=== PATIENT | male | born 1950 | race Caucasian/White ===

== ENCOUNTER → 2016-07-25 | Outpatient (CLI) | payer BC ==
[~2016-07-25] MED LIST: ASPCH81X PO; CANA1TAB3 PO; GLIM4TAB2 PO; LIRA18IN SC; METF1TAB53 PO; OLME1TAB11 PO
[2016-07-25 09:48] LABS: BASO % 0.5 %; BASO ABS # 0.03 K/uL (0-0.2); COMPLETE YES; EOS % 5.7 %; HEMATOCRIT 39.4 % (42-52); IG% 0.5 %; LYMPH % 35.9 %; MEAN CELL VOLUME 98.5 fL (80-100); MEAN CORPUSCULAR HEMOGLOBIN 35.8 pg (25-34); MEAN CORPUSCULAR HGB CONC 36.3 g/dl (32-36); MEAN PLATELET VOLUME 10.6 fL (7.4-10.4); MONO % 11.3 %; NEUT % 46.1 %; PLATELET COUNT 196 K/uL (130-400); WHITE BLOOD COUNT 5.57 K/uL (4.8-10.8)
[2016-07-25 10:26] LABS: ESTIMATED AVERAGE GLUCOSE 146 mg/dl; HA1C FLAG Normal (Normal)
[2016-07-25 10:30] LABS: CALCIUM 9.8 mg/dl (8.5-10.1)
[2016-07-25 10:34] LABS: ALT/SGPT 32 U/L (12-78); BLOOD UREA NITROGEN 21 mg/dl (7-18); BUN/CREATININE RATIO 26.7 (10-20); CARBON DIOXIDE 27 mmol/L (21-32); CHLORIDE 105 mmol/L (98-107); CHOLESTEROL 241 mg/dl (0-200); CREATININE 0.79 mg/dl (0.60-1.40); GLUCOSE 130 mg/dl (70-99); SODIUM 141 mmol/L (136-145); TRIGLYCERIDES 173 mg/dl (0-150); URIC ACID 4.1 mg/dl (2.6-7.2); VERY LOW DENSITY LIPOPROT CALC 35 mg/dl
[2016-07-25 10:41] LABS: ALB/GLOB RATIO 1.4 (0.9-2); ALKALINE PHOSPHATASE 44 U/L (45-117); AST/SGOT 12 U/L (15-37); CHOLESTEROL/HDL RATIO 3.7; HDL CHOLESTEROL 65 mg/dl; LDL CHOLESTEROL CALCULATED 141 mg/dl; PHOSPHORUS 3.8 mg/dl (2.5-4.9)
[2016-07-28 14:13] LABS: C-REACTIVE PROT HIGHSEN 1.5 MG/L
--- NOTE | 2016-07-31 12:44 | CODING QUERY MEDICAL NECESSITY ---
SUPPORTING DIAGNOSIS NEEDED A supporting diagnosis is required for the test/procedure performed on this patient in order for us to be reimbursed by the patient's insurance. Please provide a supporting diagnosis for the following test/procedure listed below next to the test name along with your signature. *If there is no additional diagnosis for this patient that would support the following test/procedure please document that below next to the test/procedure. Test(s)/Procedure(s) that require a supporting diagnosis: DOS 07/25 * Vitamin D DIAGNOSIS: * Vitamin B12 DIAGNOSIS: * CRP DIAGNOSIS: Provider Signature: Date: Thank you [facility] Once completed, please kindly fax back to [phone] For questions please call [phone]
== END | disposition home or self-care (01) ==
LOC: C.LAB 07:18
PROVIDERS: ATTEND Family Medicine
DX: E11.9 Type 2 diabetes mellitus without complications (principal); N40.0 Benign prostatic hyperplasia without lower urinary tract symptoms

== ENCOUNTER → 2017-01-15 | Outpatient (CLI) | payer BC ==
[2017-01-15 09:38] LABS: BASO % 0.3 %; BASO ABS # 0.02 K/uL (0-0.2); COMPLETE YES; EOS % 3.7 %; HEMATOCRIT 37.8 % (42-52); IG% 0.3 %; LYMPH % 36.2 %; LYMPH ABS # 2.16 K/uL (1.2-3.4); MEAN CELL VOLUME 97.2 fL (80-100); MEAN CORPUSCULAR HEMOGLOBIN 36.5 pg (25-34); MEAN CORPUSCULAR HGB CONC 37.6 g/dl (32-36); MEAN PLATELET VOLUME 10.5 fL (7.4-10.4); MONO % 8.2 %; NEUT % 51.3 %; PLATELET COUNT 180 K/uL (130-400); RED BLOOD COUNT 3.89 M/uL (4.7-6.1); WHITE BLOOD COUNT 5.97 K/uL (4.8-10.8)
[2017-01-15 09:58] LABS: ALB/GLOB RATIO 1.3 (0.9-2); ALKALINE PHOSPHATASE 51 U/L (45-117); ALT/SGPT 30 U/L (12-78); AST/SGOT 13 U/L (15-37); BLOOD UREA NITROGEN 20 mg/dl (7-18); BUN/CREATININE RATIO 23.2 (10-20); CARBON DIOXIDE 27 mmol/L (21-32); CHLORIDE 107 mmol/L (98-107); CHOLESTEROL 202 mg/dl (0-200); CREATININE 0.87 mg/dl (0.60-1.40); GLUCOSE 147 mg/dl (70-99); SODIUM 141 mmol/L (136-145)
[2017-01-15 10:07] LABS: CHOLESTEROL/HDL RATIO 3.2; HDL CHOLESTEROL 64 mg/dl; LDL CHOLESTEROL CALCULATED 113 mg/dl; TOTAL IRON BINDING CAPACITY 350 mcg/dl (250-450); TRIGLYCERIDES 124 mg/dl (0-150); VERY LOW DENSITY LIPOPROT CALC 25 mg/dl
[2017-01-15 14:41] LABS: ESTIMATED AVERAGE GLUCOSE 143 mg/dl; HA1C FLAG Normal (Normal)
== END | disposition home or self-care (01) ==
LOC: C.LAB 07:22
PROVIDERS: ATTEND Family Medicine
DX: E88.81 Metabolic syndrome and other insulin resistance (principal); E55.9 Vitamin D deficiency, unspecified; E78.9 Disorder of lipoprotein metabolism, unspecified; R53.83 Other fatigue; D51.9 Vitamin B12 deficiency anemia, unspecified

== ENCOUNTER → 2017-07-06 | Outpatient (CLI) | payer BC ==
[~2017-07-06] MED LIST changes: +BNC/20 PO; -OLME1TAB11 PO
[2017-07-06 09:31] LABS: BASO % 0.5 %; BASO ABS # 0.03 K/uL (0-0.2); EOS % 3.3 %; EOS ABS # 0.18 K/uL (0-0.5); HEMATOCRIT 40.1 % (42-52); HEMOGLOBIN 14.9 g/dL (14.0-18.0); IG# 0.02 K/uL (0.00-0.02); LYMPH % 35.7 %; LYMPH ABS # 1.96 K/uL (1.2-3.4); MEAN CELL VOLUME 96.6 fL (80-100); MEAN CORPUSCULAR HEMOGLOBIN 35.9 pg (25-34); MEAN CORPUSCULAR HGB CONC 37.2 g/dl (32-36); MEAN PLATELET VOLUME 10.6 fL (7.4-10.4); MONO ABS # 0.55 K/uL (0.11-0.59); NEUT % 50.1 %; NEUT ABS # 2.75 K/uL (1.4-6.5); PLATELET COUNT 182 K/uL (130-400); RED CELL DISTRIBUTION WIDTH CV 12.4 % (11.5-14.5); RED CELL DISTRIBUTION WIDTH SD 43.5 fL (36.4-46.3); WHITE BLOOD COUNT 5.49 K/uL (4.8-10.8)
[2017-07-06 09:59] LABS: ALT/SGPT 29 U/L (12-78); AST/SGOT 14 U/L (15-37); BLOOD UREA NITROGEN 24 mg/dl (7-18); CALCIUM 9.6 mg/dl (8.5-10.1); CARBON DIOXIDE 27 mmol/L (21-32); CREATININE 0.96 mg/dl (0.60-1.40); GLUCOSE 163 mg/dl (70-99); SODIUM 138 mmol/L (136-145); TOTAL PROTEIN 7.4 gm/dl (6.4-8.2)
[2017-07-06 10:07] LABS: ALKALINE PHOSPHATASE 60 U/L (45-117); CHOLESTEROL 198 mg/dl (0-200); LDL CHOLESTEROL CALCULATED 110 mg/dl; TRANSFERRIN 298 mg/dl (200-360); URIC ACID 4.2 mg/dl (2.6-7.2)
== END | disposition home or self-care (01) ==
LOC: C.LAB 06:52
PROVIDERS: ATTEND Family Medicine
DX: E88.81 Metabolic syndrome and other insulin resistance (principal); E78.9 Disorder of lipoprotein metabolism, unspecified; R53.83 Other fatigue; E55.9 Vitamin D deficiency, unspecified; D51.9 Vitamin B12 deficiency anemia, unspecified